=== PATIENT | male | born 1990 | race African-American/Black ===

== ENCOUNTER 2018-09-06 15:29 | Emergency (ER) | payer SELFPAY ==
[~2018-09-06] VITALS: Ht 172.7 cm; Wt 60.0 kg
[2018-09-06 20:06] VITALS: BP 130/76
== END 2018-09-06 20:20 | disposition left against medical advice (07) ==
LOC: ER 15:47
DX: Z53.21 Procedure and treatment not carried out due to patient leaving prior to being seen by health care provider (principal)